=== PATIENT | male | born 1985 | race African-American/Black ===

== ENCOUNTER 2017-01-14 13:34 | Emergency (ER) | payer OTHER ==
[~2017-01-14] VITALS: Ht 172.7 cm; Wt 77.1 kg
[2017-01-14 14:14] LABS: BASOPHILS # (AUTO) 0.1 /CMM (0.0-0.2); BASOPHILS % (AUTO) 0.9 % (0.0-2.0); EOSINOPHILS # (AUTO) 0.1 /CMM (0.0-0.7); EOSINOPHILS % (AUTO) 0.6 % (0.0-6.0); HEMATOCRIT 42 % (39-51); HEMOGLOBIN 13.8 g/dL (13.5-17.5); LYMPHOCYTES % (AUTO) 10.6 % (20.0-44.0); MEAN CORPUSCULAR HEMOGLOBIN 29 PG (26.0-33.0); MEAN CORPUSCULAR HGB CONC 33 g/dl (31.0-36.0); MEAN CORPUSCULAR VOLUME 88 fL (80-96); MONOCYTES # (AUTO) 0.6 /CMM (0.1-1.30); MONOCYTES % (AUTO) 6.6 % (2.0-12.0); NEUTROPHILS # (AUTO) 7.6 /CMM (1.8-8.9); NEUTROPHILS % (AUTO) 81.3 % (43.0-81.0); PLATELET COUNT (AUTO) 186 /CMM (150-450); RDW COEFFICIENT OF VARIATION 14.4 (11.5-15.0); RED BLOOD CELL COUNT(AUTO) 4.79 MIL/uL (4.5-6.0); WHITE BLOOD COUNT (AUTO) 9.4 K/uL (4.3-11.0)
[2017-01-14 14:23] LABS: CALCIUM, SERUM 9.1 mg/dL (8.5-10.1); CARBON DIOXIDE 29 mmol/L (21-32); CHLORIDE 105 mmol/L (98-107); CREATININE 1.2 mg/dL (0.6-1.3); GFR 86 mL/min (>60); GLUCOSE 105 mg/dL (74-106); POTASSIUM 3.9 mmol/L (3.5-5.1); SODIUM SERUM 141 mmol/L (136-145); UREA NITROGEN, BLOOD 27 mg/dL (7-18)
[2017-01-14 14:29] LABS: ACETAMINOPHEN 0 ug/ml (10-30); ALANINE AMINOTRANSFERASE 34 U/L (12-78); ALBUMIN 3.8 g/dL (3.4-5.0); ALCOHOL, BLOOD < 3 mg/dL (0-0); ALKALINE PHOSPHATASE 72 U/L (46-116); ASPARTATE AMINOTRANSFERASE 44 U/L (15-37); BILIRUBIN,DIRECT 0.2 mg/dL (0.0-0.2); BILIRUBIN,TOTAL 0.5 mg/dL (0.2-1.0); SALICYLATE 1.9 mg/dL (2.8-20.0); TOTAL PROTEIN, SERUM 7.3 g/dL (6.4-8.2)
--- NOTE | 2017-01-14 17:24 | NUR ---
CALLED ANG[facility] FOR TRANSPORTATION GOING TO [facility] 20 MIN.
[2017-01-14 17:51] VITALS: BP 121/73
--- NOTE | 2017-01-14 17:51 | NUR ---
Patient discharged to home in stable condition. Written and verbal after care instructions given. Patient verbalizes understanding of instruction. TRANSFERED TO [facility]
== END 2017-01-14 17:57 | disposition home or self-care (01) ==
LOC: ER 13:38
DX: F32.9 Major depressive disorder, single episode, unspecified (principal); F17.200 Nicotine dependence, unspecified, uncomplicated
CPT/HCPCS: 36415; 80048; 80076; 80164; 80329; 85025; 99284; A4606; G0480 ×2; Z7610; G6039-TC

== ENCOUNTER 2017-04-29 21:13 | Emergency (ER) | payer OTHER ==
[~2017-04-29] VITALS: Ht 170.2 cm; Wt 91.6 kg
--- NOTE | 2017-04-29 21:19 | NUR ---
TO BED 3 BIB PARAMEDICS C/O MIDEPIGASTRIC PAIN RADIATING TO MID ABDOMEN SINCE LAST NIGHT. PT ADMITS TO USING METH LAST NIGHT. PT AAOX4 NO ACUTE DISTRESS NOTED, RESP EVEN AND UNLABORED. PLACE PT ON CARDIAC MONITORING, CONTINUOUS POX. PENDING ER MD COBB. 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
--- NOTE | 2017-04-29 21:19 | NUR ---
Note undone in EDM - 04/29/17 at 2136 by JULIET TO BED 3 BIB PARAMEDICS C/O INTERMITTENT NONRADIATING MIDSTERNAL CP X FEW MONTHS PER PT REPORT. PT ADMITS TO USING METH X COUPLE OF DAYS. PT AAOX4 NO ACUTE DISTRESS NOTED, RESP EVEN AND UNLABORED. PLACE PT ON CARDIAC MONITORING, CONTINUOUS POX. PENDING ER MD COBB. SL 18G TO LAC BUSINESS OBJECTS.
[2017-04-29] MEDS ORDERED: ONDANSETRON HCL/PF 4 MG/2 ML VIAL ONE (21:41)
[2017-04-29] MEDS ORDERED: MAG HYDROX/AL HYDROX/SIMETH 30 ML UDC ONE (21:41)
[2017-04-29] MEDS ORDERED: ACETAMINOPHEN ES 500 MG TABLET ONE (21:42)
[2017-04-29] MEDS ORDERED: FAMOTIDINE (20 MG) 20 MG TABLET ONE (21:42)
[2017-04-29] MEDS ORDERED: DIVALPROEX SODIUM 250 MG TABLET.DR PO ONE ×2 (21:42→22:00)
--- NOTE | 2017-04-29 21:42 | NUR ---
BLOOD DRAWN BY ARMATURE STRAIGHTENER.
[2017-04-29 21:45] LABS: BASOPHILS # (AUTO) 0.2 /CMM (0.0-0.2); BASOPHILS % (AUTO) 2.5 % (0.0-2.0); EOSINOPHILS % (AUTO) 0.6 % (0.0-6.0); HEMATOCRIT 42 % (39-51); HEMOGLOBIN 13.9 g/dL (13.5-17.5); LYMPHOCYTES # (AUTO) 1.2 /CMM (0.8-4.8); MEAN CORPUSCULAR HEMOGLOBIN 29 PG (26.0-33.0); MEAN CORPUSCULAR HGB CONC 33 g/dl (31.0-36.0); MEAN CORPUSCULAR VOLUME 89 fL (80-96); MONOCYTES # (AUTO) 0.8 /CMM (0.1-1.30); MONOCYTES % (AUTO) 10.6 % (2.0-12.0); NEUTROPHILS # (AUTO) 5.3 /CMM (1.8-8.9); NEUTROPHILS % (AUTO) 70.3 % (43.0-81.0); PLATELET COUNT (AUTO) 231 /CMM (150-450); RDW COEFFICIENT OF VARIATION 14.1 (11.5-15.0); RED BLOOD CELL COUNT(AUTO) 4.72 MIL/uL (4.5-6.0); WHITE BLOOD COUNT (AUTO) 7.5 K/uL (4.3-11.0)
--- NOTE | 2017-04-29 21:46 | NUR ---
PT MEDICATED ORDERED.
[2017-04-29 21:59] LABS: CALCIUM, SERUM 8.4 mg/dL (8.5-10.1); CARBON DIOXIDE 28 mmol/L (21-32); CHLORIDE 101 mmol/L (98-107); CREATININE 1.3 mg/dL (0.6-1.3); GLUCOSE 94 mg/dL (74-106); POTASSIUM 4.2 mmol/L (3.5-5.1); SODIUM SERUM 138 mmol/L (136-145); UREA NITROGEN, BLOOD 31 mg/dL (7-18)
[2017-04-29] MEDS ORDERED: FAMOTIDINE (20 MG) 20 MG TABLET PO ONE (22:00)
[2017-04-29] MEDS ORDERED: ACETAMINOPHEN ES 500 MG TABLET PO ONE (22:00)
[2017-04-29] MEDS ORDERED: ONDANSETRON HCL/PF 4 MG/2 ML VIAL IVP ONE (22:00)
[2017-04-29] MEDS ORDERED: MAG HYDROX/AL HYDROX/SIMETH 30 ML UDC PO ONE (22:00)
[2017-04-29 22:05] LABS: TROPONIN I < 0.017 ng/mL (0.00-0.056)
--- NOTE | 2017-04-29 22:06 | NUR ---
URINE SAMPLE COLLECTED AND SENT TO LAB.
[2017-04-29 22:16] LABS: ALANINE AMINOTRANSFERASE 60 U/L (12-78); ALBUMIN 4.3 g/dL (3.4-5.0); ALCOHOL, BLOOD < 3 mg/dL (0-0); ALKALINE PHOSPHATASE 70 U/L (46-116); ASPARTATE AMINOTRANSFERASE 108 U/L (15-37); BILIRUBIN,DIRECT 0.1 mg/dL (0.0-0.2); BILIRUBIN,TOTAL 0.6 mg/dL (0.2-1.0); TOTAL PROTEIN, SERUM 7.6 g/dL (6.4-8.2)
[2017-04-29 22:20] LABS: ACETAMINOPHEN 0 ug/ml (10-30)
[2017-04-29] MEDS ORDERED: TDAP [DIPH/PERTUSSIS/TET] 0.5 ML VIAL IM ONE ×2 (22:51→23:00)
--- NOTE | 2017-04-29 22:52 | NUR ---
CALLED [facility] FOR TRANSPORT, ETA OF 30 MINS WAS GIVEN.
--- NOTE | 2017-04-29 23:14 | NUR ---
TRANSPORT AT BEDSIDE REPORT GIVEN TO EMT
[2017-04-29 23:15] VITALS: BP 138/76
== END 2017-04-29 23:21 | disposition home or self-care (01) ==
LOC: ER 21:14
DX: R07.89 Other chest pain (principal); F20.9 Schizophrenia, unspecified; R56.9 Unspecified convulsions; F17.200 Nicotine dependence, unspecified, uncomplicated
CPT/HCPCS: 36415; 71010; 80048; 80076; 80305; 80329; 84484; 85025; 90471; 90715; 93005; 96374; 99285; A4606; G0480 ×2; J2405; Z7610

== ENCOUNTER 2019-02-24 19:23 | Emergency (ER) | payer MEDICAID, OTHER ==
[~2019-02-24] VITALS: Ht 172.7 cm; Wt 83.9 kg
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
--- NOTE | 2019-02-24 20:10 | NUR ---
SEEN AND EXAMINED BY DORIAN TRAMMELL
--- NOTE | 2019-02-24 20:20 | NUR ---
URINAL GIVEN BUT UNABLE TO PROVIDE URINE SPECIMEN THIS TIME.
--- NOTE | 2019-02-24 20:22 | NUR ---
BLOOD DRAWNED AND SENT TO LAB.
[2019-02-24] MEDS ORDERED: DIVALPROEX SODIUM 500 MG TABLET.DR PO ONE ×2 (20:28→20:30)
[2019-02-24 20:55] LABS: BASOPHILS % (AUTO) 0.7 % (0.0-2.0); EOSINOPHILS % (AUTO) 0.4 % (0.0-6.0); HEMATOCRIT 45 % (39-51); HEMOGLOBIN 15.1 g/dL (13.5-17.5); LYMPHOCYTES # (AUTO) 1.1 /CMM (0.8-4.8); LYMPHOCYTES % (AUTO) 18.2 % (20.0-44.0); MEAN CORPUSCULAR HGB CONC 34 g/dl (31.0-36.0); MEAN CORPUSCULAR VOLUME 89 fL (80-96); MONOCYTES # (AUTO) 0.6 /CMM (0.1-1.30); MONOCYTES % (AUTO) 9.7 % (2.0-12.0); NEUTROPHILS # (AUTO) 4.4 /CMM (1.8-8.9); PLATELET COUNT (AUTO) 247 /CMM (150-450); RED BLOOD CELL COUNT(AUTO) 5.02 MIL/uL (4.5-6.0); WHITE BLOOD COUNT (AUTO) 6.2 K/uL (4.3-11.0)
[2019-02-24 21:00] LABS: CALCIUM, SERUM 9.4 mg/dL (8.5-10.1); CARBON DIOXIDE 28 mmol/L (21-32); CHLORIDE 98 mmol/L (98-107); CREATININE 1.2 mg/dL (0.6-1.3); GLUCOSE 98 mg/dL (74-106); POTASSIUM 4.8 mmol/L (3.5-5.1); SODIUM SERUM 136 mmol/L (136-145); UREA NITROGEN, BLOOD 27 mg/dL (7-18)
[2019-02-24 21:06] LABS: ALANINE AMINOTRANSFERASE 43 U/L (12-78); ALBUMIN 4.7 g/dL (3.4-5.0); ALCOHOL, BLOOD < 3 mg/dL (0-0); ALKALINE PHOSPHATASE 78 U/L (46-116); ASPARTATE AMINOTRANSFERASE 58 U/L (15-37); BILIRUBIN,DIRECT 0.2 mg/dL (0.0-0.2); BILIRUBIN,TOTAL 0.6 mg/dL (0.2-1.0); TOTAL PROTEIN, SERUM 8.6 g/dL (6.4-8.2)
[2019-02-24 21:09] LABS: APPEARANCE,URINE Clear (CLEAR); BILIRUBIN,URINE SMALL (NEGATIVE); BLOOD, URINE Negative Ery/uL (NEGATIVE); COLOR,URINE Yellow (YELLOW); KETONES,URINE 15 (NEGATIVE); LEUKOCYTE ESTERASE ,URINE Negative (NEGATIVE); NITRITE, URINE Negative (NEGATIVE); PH,URINE 5.5 (5.0-8.0); PROTEIN,URINE Trace mg/dl (NEGATIVE); UGLUCOSE Negative (NEGATIVE); UROBILINOGEN,URINE 0.2 EU/dL (0.2)
[2019-02-24 21:10] LABS: ACETAMINOPHEN < 10 ug/ml (10-30)
--- NOTE | 2019-02-24 21:15 | NUR ---
URINE SPECIMEN COLLECTED AND SENT LAB.
[2019-02-24 21:25] LABS: BACTERIA,URINE None seen /HPF (None Seen); MUCUS,URINE Rare /LPF (None Seen); RBC,URINE 0-2 /HPF (0-2); SQUAMOUS EPITHELIAL CELL,UR Few /HPF (None Seen); WBC,URINE 0-2 /HPF (0-3)
--- NOTE | 2019-02-24 21:35 | NUR ---
CALLED HOME SERVICE ADVISOR YOEL SCHOOL AGE TEACHER WILL BE HERE IN 1 HR
--- NOTE | 2019-02-24 23:09 | NUR ---
YOEL REESE AT BEDSIDE FOR EVAL.
--- NOTE | 2019-02-25 00:07 | NUR ---
SPOKE TO RODNEY FROM [facility]. STATED THEY WILL TAKE THE PATIENT BETWEEN [phone].
[2019-02-25] MEDS ORDERED: LORAZEPAM 1 MG TABLET ONE (02:13)
--- NOTE | 2019-02-25 02:20 | NUR ---
ATIVAN 1MG PO GIVEN VERBAL ORDERED BY DR. WESLEY.
--- NOTE | 2019-02-25 03:57 | NUR ---
PT ACCEPTED TO [facility]. [facility] ETA: 0515. AUTH:[id number] PT GOING TO ROOM: UNIT 1. NUMBER FOR REPORT: [phone]. EXT 108
--- NOTE | 2019-02-25 04:08 | NUR ---
REPORT GIVEN TO CHULA ÁLVAREZ OF [facility] FOR [facility].
[2019-02-25] MEDS ORDERED: LORAZEPAM 1 MG TABLET PO ONE (04:30)
[2019-02-25 05:09] VITALS: BP 150/92
--- NOTE | 2019-02-25 05:09 | NUR ---
REPORT GIVEN TO EMT FOR PATIENT TRANSFER.
== END 2019-02-25 05:11 ==
LOC: ER 19:25
DX: F32.9 Major depressive disorder, single episode, unspecified (principal); F22 Delusional disorders; F17.200 Nicotine dependence, unspecified, uncomplicated; Z59.0 Homelessness
CPT/HCPCS: 36415; 80048; 80076; 80305; 80307; 80329; 81001; 85025; 99285; G0480; 81000-TC

== ENCOUNTER 2019-11-28 13:36 | Emergency (ER) | payer MEDICAID, OTHER ==
[~2019-11-28] VITALS: Ht 170.2 cm; Wt 79.4 kg
--- NOTE | 2019-11-28 13:55 | NUR ---
IV LINE ESTABLISHED, BLOOD DRAWN AND SENT TO LAB.
[2019-11-28] MEDS ORDERED: ONDANSETRON HCL/PF 4 MG/2 ML VIAL ONE (13:59)
[2019-11-28] MEDS ORDERED: MORPHINE SULFATE INJ 4 MG/ML DISP.SYRIN ONE (13:59)
[2019-11-28] MEDS ORDERED: IV NS 0.9% 1,000 ML BAG IV ONE (14:00)
[2019-11-28] MEDS ORDERED: MORPHINE SULFATE INJ 2 MG/ML DISP.SYRIN IV ONE (14:00)
[2019-11-28] MEDS ORDERED: ONDANSETRON HCL/PF 4 MG/2 ML VIAL IVP ONE (14:00)
[2019-11-28] MEDS ORDERED: PANTOPRAZOLE 80 MG in IV NS 0.9% 500 ML IV ONE (14:00)
--- NOTE | 2019-11-28 14:00 | NUR ---
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 On room air, breathing evenly and unlabored. connected to the monitor and pulse ox. Kept comfortable, will continue to monitor accordingly.
[2019-11-28 14:01] LABS: BASOPHILS % (AUTO) 0.4 % (0.0-2.0); EOSINOPHILS % (AUTO) 0.6 % (0.0-6.0); HEMATOCRIT 42 % (39-51); HEMOGLOBIN 14.2 g/dL (13.5-17.5); LYMPHOCYTES % (AUTO) 18.3 % (20.0-44.0); MEAN CORPUSCULAR HGB CONC 34 g/dl (31.0-36.0); MEAN CORPUSCULAR VOLUME 88 fL (80-96); MONOCYTES # (AUTO) 0.4 /CMM (0.1-1.30); NEUTROPHILS % (AUTO) 72.7 % (43.0-81.0); PLATELET COUNT (AUTO) 264 /CMM (150-450); RED BLOOD CELL COUNT(AUTO) 4.73 MIL/uL (4.5-6.0); WHITE BLOOD COUNT (AUTO) 5.5 K/uL (4.3-11.0)
[2019-11-28] MEDS ORDERED: PANTOPRAZOLE 40 MG VIAL ONE (14:01)
[2019-11-28 14:08] LABS: CREATININE 1.4 mg/dL (0.6-1.3); POTASSIUM 3.9 mmol/L (3.5-5.1)
[2019-11-28 14:14] LABS: ALBUMIN 4.3 g/dL (3.4-5.0); BILIRUBIN,DIRECT 0.3 mg/dL (0.0-0.2); BILIRUBIN,TOTAL 1.4 mg/dL (0.2-1.0); TOTAL PROTEIN, SERUM 7.7 g/dL (6.4-8.2)
[2019-11-28] MEDS ORDERED: PANTOPRAZOLE 40 MG VIAL IV ONE (14:30)
[2019-11-28 15:37] LABS: APPEARANCE,URINE Clear (CLEAR); BILIRUBIN,URINE Negative (NEGATIVE); BLOOD, URINE Small Ery/uL (NEGATIVE); COLOR,URINE Yellow (YELLOW); KETONES,URINE 15 (NEGATIVE); LEUKOCYTE ESTERASE ,URINE Negative (NEGATIVE); NITRITE, URINE Negative (NEGATIVE); PROTEIN,URINE Negative (NEGATIVE); UGLUCOSE Negative (NEGATIVE)
[2019-11-28 15:47] LABS: BACTERIA,URINE Few /HPF (None Seen); SQUAMOUS EPITHELIAL CELL,UR Few /HPF (None Seen); WBC,URINE 0-2 /HPF (0-3)
--- NOTE | 2019-11-28 16:05 | NUR ---
patient verbalized SI " i want to jump off the bridge", MD notified.
--- NOTE | 2019-11-28 16:06 | NUR ---
security at bedside and wand the patient.
--- NOTE | 2019-11-28 16:06 | NUR ---
called security for wanding
[2019-11-28 16:50] LABS: ACETAMINOPHEN < 5 ug/ml (10-30); SALICYLATE 0.7 mg/dL (2.8-20.0)
--- NOTE | 2019-11-28 19:43 | NUR ---
PER [facility]ONNI [facility]TA[facility], NO BEDS AVAILABLE AT THIS TIME. WILL FOLLOW UP
--- NOTE | 2019-11-28 21:57 | NUR ---
Andreea ayon in [facility] - 11/28/19 at 2219 by MOISÉS PER [facility]ON[facility] INTAKE, PT NOT ACCEPTED TO ANY [facility] FACILITY
--- NOTE | 2019-11-28 21:57 | NUR ---
PER SOC[facility] INTAKE, PT NOT ACCEPTED TO [facility]. PENDING POSSIBLE TRANSFER TO [facility], WILL FOLLOW UP
--- NOTE | 2019-11-28 22:16 | NUR ---
Patient is resting comfortably in bed with eyes closed. Easily aroused. VSS.
--- NOTE | 2019-11-28 22:30 | NUR ---
PER [facility], NO BEDS AVAILABLE AT THIS TIME
--- NOTE | 2019-11-29 02:14 | NUR ---
Patient is resting comfortably in bed with eyes closed.
[2019-11-29] MEDS ORDERED: LORAZEPAM 1 MG TABLET ONE (02:39)
[2019-11-29] MEDS ORDERED: LORAZEPAM 1 MG TABLET PO ONE (03:00)
--- NOTE | 2019-11-29 07:26 | NUR ---
PER [facility] INTAKE, STILL NO BEDS AVAILABLE AT THIS TIME. WILL FOLLOW UP
--- NOTE | 2019-11-29 07:30 | NUR ---
REPORT RECEIVED FROM LUCIA QUIROS FOR JA[facility]
--- NOTE | 2019-11-29 07:53 | NUR ---
FOOD TRAY PROVIDED.
--- NOTE | 2019-11-29 08:39 | NUR ---
COTTON ACREAGE MEASURER contacted Edmundo at [facility] to f/u regarding accepting pt at [facility]. Edmundo informed COTTON ACREAGE MEASURER he will call [facility] back after following up with [facility].
--- NOTE | 2019-11-29 08:56 | NUR ---
REPORT GIVEN TO CUHLA HOUSE OF [facility] EULAILO.
[2019-11-29] MEDS ORDERED: DIVALPROEX SODIUM 500 MG TABLET.DR PO ONE ×2 (08:59→09:00)
[2019-11-29 09:02] VITALS: BP 139/89
--- NOTE | 2019-11-29 09:16 | NUR ---
HILDA OF [facility] INTAKE, PT IS ACCEPTED BY AND .
--- NOTE | 2019-11-29 10:48 | NUR ---
REPORT GIVEN TO EMS FOR PT TRANSFER TO [facility].
--- NOTE | 2019-11-29 11:00 | NUR ---
Picked up by [facility] going to [facility] in stable condition. All belongings returned to patient. Name band removed.
== END 2019-11-29 11:15 ==
LOC: ER 13:36
DX: F31.9 Bipolar disorder, unspecified (principal); R45.851 Suicidal ideations; R16.0 Hepatomegaly, not elsewhere classified; F19.10 Other psychoactive substance abuse, uncomplicated; R11.10 Vomiting, unspecified; F20.0 Paranoid schizophrenia; G40.909 Epilepsy, unspecified, not intractable, without status epilepticus; F17.200 Nicotine dependence, unspecified, uncomplicated; Z59.0 Homelessness
CPT/HCPCS: 36415; 74176; 80048; 80076; 80305; 80307; 80329; 81001; 83690; 85025; 85730; 96361; 96374; 96375; 99285; C9113; G0480; J2270; J2405; J7030; 81000-TC

== ENCOUNTER 2019-12-15 21:23 | Emergency (ER) | payer MEDICAID ==
[~2019-12-15] VITALS: Ht 172.7 cm; Wt 87.1 kg
--- NOTE | 2019-12-15 22:02 | NUR ---
PT BIBSELF C/O SUICIDAL IDEATION AND AUDITORY HALLUCINATIONS. PT STATES "I'M HEARING VOICES TELLING ME TO RUN INTO TRAFFIC". PT ALSO C/O ANXIETY AND DEPRESSION. PT AAOX4. CALM AND COOPERATIVE. AMBULATORY WITH STEADY GAIT. VITAL SIGNS STABLE. RESPIRATIONS EVEN AND UNLABORED. SKIN WARM AND INTACT. NO ACUTE DISTRESS NOTED AT THIS TIME. PT PLACED IN GOWN, BELONGINGS COLLECTED AND PLACED IN PATIENT LOCKER. SITTER AT BEDSIDE. WILL CONTINUE TO MONITOR
[2019-12-15 23:05] LABS: BASOPHILS % (AUTO) 0.8 % (0.0-2.0); EOSINOPHILS % (AUTO) 1.2 % (0.0-6.0); HEMATOCRIT 42 % (39-51); HEMOGLOBIN 14.1 g/dL (13.5-17.5); LYMPHOCYTES # (AUTO) 1.5 /CMM (0.8-4.8); LYMPHOCYTES % (AUTO) 26.1 % (20.0-44.0); MEAN CORPUSCULAR HGB CONC 34 g/dl (31.0-36.0); MEAN CORPUSCULAR VOLUME 90 fL (80-96); MONOCYTES # (AUTO) 0.4 /CMM (0.1-1.30); MONOCYTES % (AUTO) 6.3 % (2.0-12.0); NEUTROPHILS # (AUTO) 3.8 /CMM (1.8-8.9); NEUTROPHILS % (AUTO) 65.6 % (43.0-81.0); PLATELET COUNT (AUTO) 278 /CMM (150-450); RED BLOOD CELL COUNT(AUTO) 4.66 MIL/uL (4.5-6.0); WHITE BLOOD COUNT (AUTO) 5.7 K/uL (4.3-11.0)
[2019-12-15 23:07] LABS: APPEARANCE,URINE Slightly Cloudy (CLEAR); BILIRUBIN,URINE Negative (NEGATIVE); BLOOD, URINE Negative Ery/uL (NEGATIVE); COLOR,URINE Dark (YELLOW); KETONES,URINE Negative (NEGATIVE); LEUKOCYTE ESTERASE ,URINE Negative (NEGATIVE); NITRITE, URINE Negative (NEGATIVE); PROTEIN,URINE Negative (NEGATIVE); UGLUCOSE 100 MG/DL mg/dL (NEGATIVE)
[2019-12-15 23:17] LABS: BACTERIA,URINE Few /HPF (None Seen); MUCUS,URINE Few /LPF (None Seen); RBC,URINE 0-2 /HPF (0-2); SQUAMOUS EPITHELIAL CELL,UR Rare /HPF (None Seen); WBC,URINE 0-2 /HPF (0-3)
[2019-12-15 23:18] LABS: CALCIUM, SERUM 8.9 mg/dL (8.5-10.1); CARBON DIOXIDE 31 mmol/L (21-32); CHLORIDE 102 mmol/L (98-107); GLUCOSE 135 mg/dL (74-106); POTASSIUM 3.9 mmol/L (3.5-5.1); SODIUM SERUM 139 mmol/L (136-145); UREA NITROGEN, BLOOD 13 mg/dL (7-18)
[2019-12-15 23:23] LABS: ALANINE AMINOTRANSFERASE 65 U/L (12-78); ALBUMIN 3.8 g/dL (3.4-5.0); ALCOHOL, BLOOD < 3 mg/dL (0-0); ALKALINE PHOSPHATASE 99 U/L (46-116); ASPARTATE AMINOTRANSFERASE 21 U/L (15-37); BILIRUBIN,DIRECT 0.1 mg/dL (0.0-0.2); BILIRUBIN,TOTAL 0.5 mg/dL (0.2-1.0); TOTAL PROTEIN, SERUM 7.2 g/dL (6.4-8.2)
[2019-12-15 23:24] LABS: ACETAMINOPHEN 0 ug/ml (10-30)
[2019-12-15 23:25] LABS: SALICYLATE < 0.2 mg/dL (2.8-20.0)
--- NOTE | 2019-12-16 00:49 | NUR ---
PER DR. QUEZADA, PT MEDICALLY CLEARED. CLINICAL INFORMATION FAXED TO [facility]
--- NOTE | 2019-12-16 01:37 | NUR ---
PT RESTING COMFORTABLY. NO ACUTE DISTRESS NOTED. PT ON CONSTANT OBSERVATION W/ SITTER AT BEDSIDE. WILL CONTINUE TO MONITOR FOR SAFETY
--- NOTE | 2019-12-16 03:00 | NUR ---
PT ACCEPTED TO [facility] ACCEPTING MD: DR. CORREA NUMBER FOR REPORT: [phone] UNIT 1
--- NOTE | 2019-12-16 03:05 | NUR ---
CALLED [facility] FOR TRANSPORTATION. PENDING ETA. CONFIRMATION #[id number]
--- NOTE | 2019-12-16 04:14 | NUR ---
[facility] CONFIRMATION #[id number]. STILL PENDING ETA
--- NOTE | 2019-12-16 04:49 | NUR ---
PT RESTING COMFORTABLY. NO ACUTE DISTRESS NOTED. PT ON CONSTANT OBSERVATION W/ SITTER AT BEDSIDE. WILL CONTINUE TO MONITOR FOR SAFETY
--- NOTE | 2019-12-16 05:00 | NUR ---
AMBULANCE ETA [phone]
--- NOTE | 2019-12-16 07:28 | NUR ---
REPORT GIVEN TO CHULA CHATTERJEE FROM [facility] FOR [facility]NAE
[2019-12-16 07:29] VITALS: BP 131/79
--- NOTE | 2019-12-16 07:32 | NUR ---
REPORT GIVEN TO [facility] FOR TRANSPORTATION JA[facility]E
== END 2019-12-16 07:33 | disposition short-term general hospital (02) ==
LOC: ER 21:34
DX: F32.9 Major depressive disorder, single episode, unspecified (principal); R45.851 Suicidal ideations; G40.909 Epilepsy, unspecified, not intractable, without status epilepticus; F20.9 Schizophrenia, unspecified; F17.200 Nicotine dependence, unspecified, uncomplicated; Z59.0 Homelessness
CPT/HCPCS: 36415; 80048; 80076; 80305; 80307; 80329; 81001; 85025; 99285; G0480; 81000-TC

== ENCOUNTER 2020-03-13 00:03 | Emergency (ER) | payer MEDICAID ==
[~2020-03-13] VITALS: Ht 167.6 cm; Wt 99.8 kg
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
[2020-03-13 00:44] LABS: BASOPHILS % (AUTO) 0.6 % (0.0-2.0); EOSINOPHILS % (AUTO) 0.8 % (0.0-6.0); HEMATOCRIT 41 % (39-51); HEMOGLOBIN 13.6 g/dL (13.5-17.5); LYMPHOCYTES # (AUTO) 1.9 /CMM (0.8-4.8); LYMPHOCYTES % (AUTO) 34.4 % (20.0-44.0); MEAN CORPUSCULAR HGB CONC 34 g/dl (31.0-36.0); MEAN CORPUSCULAR VOLUME 90 fL (80-96); MONOCYTES # (AUTO) 0.6 /CMM (0.1-1.30); MONOCYTES % (AUTO) 10.2 % (2.0-12.0); NEUTROPHILS # (AUTO) 2.9 /CMM (1.8-8.9); PLATELET COUNT (AUTO) 228 /CMM (150-450); RED BLOOD CELL COUNT(AUTO) 4.52 MIL/uL (4.5-6.0); WHITE BLOOD COUNT (AUTO) 5.4 K/uL (4.3-11.0)
[2020-03-13] MEDS ORDERED: ACETAMINOPHEN ES 500 MG TABLET ONE (00:54)
[2020-03-13 00:57] LABS: CALCIUM, SERUM 8.8 mg/dL (8.5-10.1); CARBON DIOXIDE 28 mmol/L (21-32); CHLORIDE 109 mmol/L (98-107); CREATININE 1.2 mg/dL (0.6-1.3); GLUCOSE 120 mg/dL (74-106); POTASSIUM 4.1 mmol/L (3.5-5.1); SODIUM SERUM 142 mmol/L (136-145); UREA NITROGEN, BLOOD 15 mg/dL (7-18)
[2020-03-13] MEDS ORDERED: ACETAMINOPHEN ES 500 MG TABLET PO ONE (01:00)
[2020-03-13 01:01] LABS: ALANINE AMINOTRANSFERASE 42 U/L (12-78); ALBUMIN 4.2 g/dL (3.4-5.0); ALCOHOL, BLOOD < 3 mg/dL (0-0); ALKALINE PHOSPHATASE 97 U/L (46-116); ASPARTATE AMINOTRANSFERASE 35 U/L (15-37); BILIRUBIN,DIRECT 0.1 mg/dL (0.0-0.2); BILIRUBIN,TOTAL 0.3 mg/dL (0.2-1.0); TOTAL PROTEIN, SERUM 7.4 g/dL (6.4-8.2)
[2020-03-13 01:02] LABS: ACETAMINOPHEN 0 ug/ml (10-30); SALICYLATE 2.3 mg/dL (2.8-20.0)
--- NOTE | 2020-03-13 01:45 | NUR ---
PT UNABLE TO PROVIDE URINE SAMPLE AT THIS TIME. MD HOOPER
--- NOTE | 2020-03-13 02:19 | NUR ---
URINE COLLECTED AND SENT TO LAB
[2020-03-13 03:03] LABS: APPEARANCE,URINE CLEAR (CLEAR); BILIRUBIN,URINE NEGATIVE (NEGATIVE); BLOOD, URINE NEGATIVE Ery/uL (NEGATIVE); COLOR,URINE YELLOW (YELLOW); KETONES,URINE NEGATIVE (NEGATIVE); LEUKOCYTE ESTERASE ,URINE NEGATIVE (NEGATIVE); NITRITE, URINE NEGATIVE (NEGATIVE); PROTEIN,URINE NEGATIVE (NEGATIVE); UGLUCOSE NEGATIVE (NEGATIVE); UROBILINOGEN,URINE 0.2 EU/dL (0.2)
--- NOTE | 2020-03-13 04:35 | NUR ---
PER RONALD FROM [facility], REQUESTING DEPAKOTE LEVEL
[2020-03-13] MEDS ORDERED: DIVALPROEX SODIUM 500 MG TABLET.DR PO ONE ×2 (06:14→06:30)
--- NOTE | 2020-03-13 06:14 | NUR ---
spoke ASMITA, aware of results depakote level and pt to received depakote 500mg po. will fax lab results as requested.
[2020-03-13 06:25] VITALS: BP 136/86
--- NOTE | 2020-03-13 06:28 | NUR ---
PT ACCEPTED TO [facility] BY DR CORREA. # FOR REPORT [phone]
--- NOTE | 2020-03-13 06:46 | NUR ---
[facility] CALLED FOR TRANSPORTATION. PENDING ETA. #[id number]
--- NOTE | 2020-03-13 06:58 | NUR ---
CALL FROM [facility]. [facility] ETA [phone]
--- NOTE | 2020-03-13 08:29 | NUR ---
Patient awake alert noted able to ambulate he follows command no agitaion @ this time
--- NOTE | 2020-03-13 08:52 | NUR ---
Report given to Beata Barraza [facility] [phone] no question asked .
== END 2020-03-13 08:54 ==
LOC: ER 00:03
DX: F31.9 Bipolar disorder, unspecified (principal); R45.851 Suicidal ideations; F20.0 Paranoid schizophrenia; G40.909 Epilepsy, unspecified, not intractable, without status epilepticus; Z59.0 Homelessness
CPT/HCPCS: 36415; 80048; 80076; 80164; 80305; 80307; 80329; 81001; 85025; 99285; G0480; 81000-TC

== ENCOUNTER 2020-05-22 18:13 | Emergency (ER) | payer MEDICAID ==
[~2020-05-22] VITALS: Ht 172.7 cm; Wt 97.5 kg
--- NOTE | 2020-05-22 18:31 | NUR ---
CAME IN STATING NOTICE BLOOD IN STOOL X TODAY. ALSO SUICIDAL W/ PLAN TO OD/ JUMP OFF BRIDGE, HOMELESS, TO ER BED 15, HOOKED TO MONITOR, SITTER AT BEDSIDE FOR SAFETY. AWAITING MD COBB
--- NOTE | 2020-05-22 18:33 | NUR ---
DR CALDERA AT BEDSIDE
--- NOTE | 2020-05-22 18:42 | NUR ---
SECURITY AT BEDSIDE FOR WANDING. BELONGINGS TO PATIENT LOCKER.
[2020-05-22 18:48] LABS: APPEARANCE,URINE Clear (CLEAR); BILIRUBIN,URINE SMALL (NEGATIVE); BLOOD, URINE Negative Ery/uL (NEGATIVE); COLOR,URINE Yellow (YELLOW); KETONES,URINE Trace (NEGATIVE); LEUKOCYTE ESTERASE ,URINE Negative (NEGATIVE); NITRITE, URINE Negative (NEGATIVE); PH,URINE 5.5 (5.0-8.0); PROTEIN,URINE 30 mg/dl (NEGATIVE); UGLUCOSE Negative (NEGATIVE)
[2020-05-22 18:51] LABS: BASOPHILS % (AUTO) 0.5 % (0.0-2.0); EOSINOPHILS % (AUTO) 0.7 % (0.0-6.0); HEMATOCRIT 42 % (39-51); HEMOGLOBIN 14.2 g/dL (13.5-17.5); LYMPHOCYTES # (AUTO) 1.9 /CMM (0.8-4.8); LYMPHOCYTES % (AUTO) 23.8 % (20.0-44.0); MEAN CORPUSCULAR HGB CONC 34 g/dl (31.0-36.0); MEAN CORPUSCULAR VOLUME 88 fL (80-96); MONOCYTES # (AUTO) 0.9 /CMM (0.1-1.30); MONOCYTES % (AUTO) 11.5 % (2.0-12.0); NEUTROPHILS # (AUTO) 5.1 /CMM (1.8-8.9); NEUTROPHILS % (AUTO) 63.5 % (43.0-81.0); PLATELET COUNT (AUTO) 261 /CMM (150-450); RED BLOOD CELL COUNT(AUTO) 4.73 MIL/uL (4.5-6.0)
[2020-05-22 19:06] LABS: BACTERIA,URINE Rare /HPF (None Seen); RBC,URINE NONE SEEN /HPF (0-2); SQUAMOUS EPITHELIAL CELL,UR Few /HPF (None Seen); WBC,URINE NONE SEEN /HPF (0-3)
--- NOTE | 2020-05-22 19:10 | NUR ---
NOT ABLE TO PROVIDE URINE SAMPLE AT THIS TIME, MD HOOPER
[2020-05-22 19:18] LABS: ALANINE AMINOTRANSFERASE 86 U/L (12-78); ALBUMIN 4.6 g/dL (3.4-5.0); ALKALINE PHOSPHATASE 93 U/L (46-116); ASPARTATE AMINOTRANSFERASE 149 U/L (15-37); BILIRUBIN,DIRECT 0.4 mg/dL (0.0-0.2); BILIRUBIN,TOTAL 1.6 mg/dL (0.2-1.0); CALCIUM, SERUM 9.1 mg/dL (8.5-10.1); CARBON DIOXIDE 24 mmol/L (21-32); CHLORIDE 98 mmol/L (98-107); CREATININE 1.7 mg/dL (0.6-1.3); GLUCOSE 194 mg/dL (74-106); POTASSIUM 3.2 mmol/L (3.5-5.1); SODIUM SERUM 133 mmol/L (136-145); TOTAL PROTEIN, SERUM 8.7 g/dL (6.4-8.2); UREA NITROGEN, BLOOD 33 mg/dL (7-18)
[2020-05-22 19:19] LABS: ACETAMINOPHEN < 2 ug/ml (10-30); ALCOHOL, BLOOD < 3 mg/dL (0-0); SALICYLATE 0.7 mg/dL (2.8-20.0)
--- NOTE | 2020-05-22 21:20 | NUR ---
SPOKE W/ SCOTT FROM [facility], PT ACCEPTED AT [facility]
--- NOTE | 2020-05-22 22:16 | NUR ---
NUMBER FOR REPORT: [phone] ACCEPTING PHYSICIAN: DR CORREA
[2020-05-22] MEDS ORDERED: POTASSIUM CHLORIDE 20 MEQ TAB.PRT.SR PO ONE (22:17)
[2020-05-22] MEDS: POTASSIUM CHLORIDE 20 MEQ TAB.PRT.SR PO ONE (22:21)
--- NOTE | 2020-05-22 22:32 | NUR ---
REPORT GIVEN TO CHULA HINSON
--- NOTE | 2020-05-22 22:37 | NUR ---
[facility] RES#[id number], ETA TO FOLLOW
--- NOTE | 2020-05-22 22:46 | NUR ---
[facility] ETA 45 MINUTES
[2020-05-22] MEDS ORDERED: CLONIDINE HCL 0.1 MG TABLET ONE (23:21)
[2020-05-22] MEDS ORDERED: LORAZEPAM 1 MG TABLET ONE (23:23)
[2020-05-22 23:25] VITALS: BP 163/100
[2020-05-22] MEDS: LORAZEPAM 1 MG TABLET PO ONE (23:25)
--- NOTE | 2020-05-22 23:48 | NUR ---
REPORT GIVEN TO EMS. PT STABLE FOR TRANSFER
== END 2020-05-22 23:50 ==
LOC: ER 18:20
DX: R45.851 Suicidal ideations (principal); F31.9 Bipolar disorder, unspecified; F20.0 Paranoid schizophrenia; G40.909 Epilepsy, unspecified, not intractable, without status epilepticus; F17.210 Nicotine dependence, cigarettes, uncomplicated; Z59.0 Homelessness; Z04.6 Encounter for general psychiatric examination, requested by authority
CPT/HCPCS: 36415; 80048; 80076; 80305; 80307; 80329; 81001; 85025; 99285; G0480; 81000-TC

== ENCOUNTER 2020-06-15 17:24 | Emergency (ER) | payer MEDICAID ==
[~2020-06-15] VITALS: Ht 172.7 cm; Wt 97.5 kg
--- NOTE | 2020-06-15 19:10 | NUR ---
BIBS, WALKED IN TO ER. TO ER BED 13. AAOX4, NOT IN RESP DISTRESS. AMBULATORY. CAME IN FOR SUICIDAL IDEATION WITH PLAN TO TORCH HIMSELF BY POURING ACID ON HIM. DENIES HI. DENIES BOTH VISUAL AND AUDITORY HALLUCINATION. PT IS SEEKING VOLUNTARY INPATIENT CARE. PT IS GOWNED, BELONGINGS PLACED IN LOCKER LOCATED IN UTILITY ROOM, VISUALLY INSPECTED FOPR CONTRABAND, WANDED AND 1:1 SITTER AT BEDSIDE. WAS AT THE BEDSIDE FOR EVAL. ORDERS RECEIVED NOTED AND CARRIED OUT. URINE COLLECTED FROM PT AND SENT TO LAB
[2020-06-15] MEDS ORDERED: LORAZEPAM 1 MG TABLET PO ONE (20:00)
[2020-06-15] MEDS ORDERED: LORAZEPAM 1 MG TABLET ONE (20:43)
[2020-06-15 20:46] LABS: BASOPHILS # (AUTO) 0.1 /CMM (0.0-0.2); BASOPHILS % (AUTO) 0.9 % (0.0-2.0); EOSINOPHILS % (AUTO) 0.6 % (0.0-6.0); HEMATOCRIT 40 % (39-51); HEMOGLOBIN 13.4 g/dL (13.5-17.5); LYMPHOCYTES # (AUTO) 1.8 /CMM (0.8-4.8); LYMPHOCYTES % (AUTO) 32.1 % (20.0-44.0); MEAN CORPUSCULAR HGB CONC 34 g/dl (31.0-36.0); MEAN CORPUSCULAR VOLUME 91 fL (80-96); MONOCYTES # (AUTO) 0.4 /CMM (0.1-1.30); MONOCYTES % (AUTO) 6.4 % (2.0-12.0); NEUTROPHILS # (AUTO) 3.4 /CMM (1.8-8.9); PLATELET COUNT (AUTO) 261 /CMM (150-450); RED BLOOD CELL COUNT(AUTO) 4.37 MIL/uL (4.5-6.0); WHITE BLOOD COUNT (AUTO) 5.7 K/uL (4.3-11.0)
[2020-06-15 20:50] LABS: APPEARANCE,URINE Clear (CLEAR); BILIRUBIN,URINE Negative (NEGATIVE); BLOOD, URINE Negative Ery/uL (NEGATIVE); COLOR,URINE Yellow (YELLOW); KETONES,URINE 15 (NEGATIVE); LEUKOCYTE ESTERASE ,URINE Negative (NEGATIVE); NITRITE, URINE Negative (NEGATIVE); PROTEIN,URINE Trace mg/dl (NEGATIVE); UGLUCOSE Negative (NEGATIVE)
[2020-06-15 21:05] LABS: BACTERIA,URINE Few /HPF (None Seen); CALCIUM OXALATE CRYSTALS,UR Few /HPF (None Seen); RBC,URINE 0-2 /HPF (0-2); SQUAMOUS EPITHELIAL CELL,UR Few /HPF (None Seen); WBC,URINE 0-2 /HPF (0-3)
[2020-06-15 21:10] LABS: CALCIUM, SERUM 8.9 mg/dL (8.5-10.1); CARBON DIOXIDE 27 mmol/L (21-32); CHLORIDE 109 mmol/L (98-107); CREATININE 1.4 mg/dL (0.6-1.3); GLUCOSE 98 mg/dL (74-106); POTASSIUM 4.4 mmol/L (3.5-5.1); SODIUM SERUM 146 mmol/L (136-145); UREA NITROGEN, BLOOD 20 mg/dL (7-18)
[2020-06-15 21:15] LABS: ALANINE AMINOTRANSFERASE 37 U/L (12-78); ALCOHOL, BLOOD < 3 mg/dL (0-0); ALKALINE PHOSPHATASE 100 U/L (46-116); ASPARTATE AMINOTRANSFERASE 16 U/L (15-37); BILIRUBIN,DIRECT 0.1 mg/dL (0.0-0.2); BILIRUBIN,TOTAL 0.3 mg/dL (0.2-1.0); TOTAL PROTEIN, SERUM 7.3 g/dL (6.4-8.2)
[2020-06-15 21:22] LABS: SALICYLATE 0.3 mg/dL (2.8-20.0)
[2020-06-15 22:40] LABS: ACETAMINOPHEN 0 ug/ml (10-30)
--- NOTE | 2020-06-15 22:48 | NUR ---
CLINICAL FAXED TO [facility] FOR VOLUNTARY PSYCH ADMISSION.
--- NOTE | 2020-06-16 00:32 | NUR ---
PT AAOX4 NO ACUTE DISTRESS NOTED, RESP EVEN AND UNLABORED. JUICE PROVIDED TO PT PER PT REQUEST. PT CALM AND COOPERATIVE AT THIS TIME.
--- NOTE | 2020-06-16 02:30 | NUR ---
PT ACCEPTED TO [facility]EPTING MD SENA PHONE# FOR REPORT PT WILL GO TO UNIT 1.
--- NOTE | 2020-06-16 02:55 | NUR ---
CALLED AND SPOKE WITH OPAL FROM [facility] IN REGARDS TO PT TRANSPORT. TRIP # [id number] ETA 1 TO 3 HRS.
--- NOTE | 2020-06-16 02:56 | NUR ---
REPORT CALLED TO [facility] NURSING MERCHANDISING PROFESSOR FLAVIA QUIROS.
--- NOTE | 2020-06-16 04:23 | NUR ---
[facility] CALLED REGARDING TRANSPORT ETA 0730 ([facility]).
--- NOTE | 2020-06-16 05:06 | NUR ---
PT ASLEEP, NO ACUTE DISTRESS NOTED, RESP EVEN AND UNLABORED. CALL LIGHT WITHIN REACH. WILL CONTINUE TO MONITOR PT CLOSELY. 1:1 SITTER REMAINS AT BEDSIDE FOR PT SAFETY.
--- NOTE | 2020-06-16 07:16 | NUR ---
ASSESSED PT ON BED AWAKE AND ALERT, NOT IN RESPIRATORY DISTRESS, V/S STABLE, KEPT RESTED AND COMFORTABLE. WILL CONTINUE TO MONITOR.
[2020-06-16 07:17] VITALS: BP 128/81
--- NOTE | 2020-06-16 08:19 | NUR ---
REPORT GIVEN TO EMT FOR PT TRANSFER TO [facility].
== END 2020-06-16 08:31 ==
LOC: ER 17:31
DX: R44.0 Auditory hallucinations (principal); R45.851 Suicidal ideations; I10 Essential (primary) hypertension; G40.909 Epilepsy, unspecified, not intractable, without status epilepticus; F32.9 Major depressive disorder, single episode, unspecified; F17.200 Nicotine dependence, unspecified, uncomplicated; Z59.0 Homelessness
CPT/HCPCS: 36415; 80048; 80076; 80305; 80307; 80329; 81001; 85025; 99285; G0480; 81000-TC

== ENCOUNTER 2020-07-18 05:49 | Emergency (ER) | payer OTHER ==
[~2020-07-18] VITALS: Ht 170.2 cm; Wt 83.9 kg
--- NOTE | 2020-07-18 06:10 | NUR ---
PT BIBSELF C/O SUICIDAL IDEATION WITH PLAN TO DROWN HIMSELF. PT ALSO C/O AUDITORY HALLUCINATIONS. DENIES HI AT THIS TIME. PT ADMITS TO METH, MARIJUANNA, AND ALCOHOL USE RETAIL SHIFT SUPERVISOR. PT AAOX4. CALM AND COOPERATIVE. VITAL SIGNS STABLE. RESPIRATIONS EVEN AND UNLABORED. AMBULATORY WITH STEADY GAIT. NO ACUTE DISTRESS NOTED AT THIS TIME. SUICIDE PRECAUTIONS INITIATED. PT PLACED IN GOWN. BELONGINGS COLLECTED AND PLACED IN PATIENT LOCKER. SITTER AT BEDSIDE, WILL CONTINUE TO MONITOR
--- NOTE | 2020-07-18 06:14 | NUR ---
security at bedside for wanding.
[2020-07-18 06:39] LABS: BASOPHILS % (AUTO) 0.6 % (0.0-2.0); EOSINOPHILS % (AUTO) 1.2 % (0.0-6.0); HEMATOCRIT 44 % (39-51); HEMOGLOBIN 14.6 g/dL (13.5-17.5); LYMPHOCYTES # (AUTO) 1.6 /CMM (0.8-4.8); LYMPHOCYTES % (AUTO) 30.1 % (20.0-44.0); MEAN CORPUSCULAR HGB CONC 34 g/dl (31.0-36.0); MEAN CORPUSCULAR VOLUME 89 fL (80-96); MONOCYTES # (AUTO) 0.5 /CMM (0.1-1.30); MONOCYTES % (AUTO) 8.6 % (2.0-12.0); NEUTROPHILS # (AUTO) 3.1 /CMM (1.8-8.9); NEUTROPHILS % (AUTO) 59.5 % (43.0-81.0); PLATELET COUNT (AUTO) 196 /CMM (150-450); RED BLOOD CELL COUNT(AUTO) 4.88 MIL/uL (4.5-6.0); WHITE BLOOD COUNT (AUTO) 5.3 K/uL (4.3-11.0)
[2020-07-18 06:42] LABS: APPEARANCE,URINE CLEAR (CLEAR); BILIRUBIN,URINE NEGATIVE (NEGATIVE); BLOOD, URINE NEGATIVE Ery/uL (NEGATIVE); COLOR,URINE YELLOW (YELLOW); KETONES,URINE NEGATIVE (NEGATIVE); LEUKOCYTE ESTERASE ,URINE NEGATIVE (NEGATIVE); NITRITE, URINE NEGATIVE (NEGATIVE); PROTEIN,URINE 100 mg/dl (NEGATIVE); UGLUCOSE NEGATIVE (NEGATIVE)
[2020-07-18 06:53] LABS: CALCIUM, SERUM 8.9 mg/dL (8.5-10.1); CARBON DIOXIDE 30 mmol/L (21-32); CHLORIDE 101 mmol/L (98-107); CREATININE 1.4 mg/dL (0.6-1.3); GLUCOSE 105 mg/dL (74-106); POTASSIUM 4.2 mmol/L (3.5-5.1); SODIUM SERUM 138 mmol/L (136-145); UREA NITROGEN, BLOOD 15 mg/dL (7-18)
[2020-07-18 06:58] LABS: ALANINE AMINOTRANSFERASE 24 U/L (12-78); ALBUMIN 4.4 g/dL (3.4-5.0); ALCOHOL, BLOOD < 3 mg/dL (0-0); ALKALINE PHOSPHATASE 66 U/L (46-116); ASPARTATE AMINOTRANSFERASE 18 U/L (15-37); BILIRUBIN,DIRECT 0.1 mg/dL (0.0-0.2); BILIRUBIN,TOTAL 0.7 mg/dL (0.2-1.0); TOTAL PROTEIN, SERUM 7.8 g/dL (6.4-8.2)
[2020-07-18 07:08] LABS: RBC,URINE 0-3 /HPF (0-2)
[2020-07-18 07:09] LABS: BACTERIA,URINE None seen /HPF (None Seen); SQUAMOUS EPITHELIAL CELL,UR Rare /HPF (None Seen)
[2020-07-18 07:11] LABS: ACETAMINOPHEN < 10 ug/ml (10-30)
--- NOTE | 2020-07-18 07:56 | NUR ---
COVID SWAB SENT.
--- NOTE | 2020-07-18 08:21 | NUR ---
COVID19 NEGATIVE.
--- NOTE | 2020-07-18 08:39 | NUR ---
CASSIA received a call from SCHOOL BUS DRIVER/TEACHER ASSISTANTCHULA Price that patient would like voluntary psychiatric treatment. CASSIA informed Edmundo at [facility]. Per CASSIA Wyatt to fax clinicals to this morning. CASSIA faxed clinicals pending review.
--- NOTE | 2020-07-18 10:06 | NUR ---
SW received a call from [facility] at Intake. Per Sebastian patient has been accepted under the care of Dr. Arana. Report to be provided to Nursing Packer Fuser Farrah .
--- NOTE | 2020-07-18 11:31 | NUR ---
REPORT GIVEN TO KRAIG QUIROS AT [facility]
--- NOTE | 2020-07-18 13:45 | NUR ---
CALLED [facility] FOR TRANSPORT TO [facility]. ETA 30 MINUTES.
--- NOTE | 2020-07-18 14:12 | NUR ---
PATIENT A/OX4, BREATHING EVEN AND UNLABORED, NO SOB NOTED, PATIENT TRANSFERRED TO [facility] IN STABLE CONDITION.
[2020-07-18 14:14] VITALS: BP 153/96
== END 2020-07-18 14:14 ==
LOC: ER 05:55
DX: R45.851 Suicidal ideations (principal); F32.9 Major depressive disorder, single episode, unspecified; F15.10 Other stimulant abuse, uncomplicated; R79.89 Other specified abnormal findings of blood chemistry; Z20.828 Contact with and (suspected) exposure to other viral communicable diseases; Z59.0 Homelessness; G40.909 Epilepsy, unspecified, not intractable, without status epilepticus; F25.0 Schizoaffective disorder, bipolar type; R03.0 Elevated blood-pressure reading, without diagnosis of hypertension
CPT/HCPCS: 36415; 80048; 80076; 80299; 80307 ×2; 80320; 81001; 85025; 87426; 99285; C9803; 81000-TC; G0480

== ENCOUNTER 2020-08-07 20:35 | Emergency (ER) | payer OTHER ==
[~2020-08-07] VITALS: Ht 172.7 cm; Wt 99.8 kg
[2020-08-07 20:35] VITALS: BP 143/78
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
--- NOTE | 2020-08-07 21:41 | NUR ---
URINE COLLECTED AND SENT TO LAB
[2020-08-07 21:56] LABS: BASOPHILS % (AUTO) 0.4 % (0.0-2.0); EOSINOPHILS % (AUTO) 0.7 % (0.0-6.0); HEMATOCRIT 43 % (39-51); LYMPHOCYTES # (AUTO) 1.9 /CMM (0.8-4.8); LYMPHOCYTES % (AUTO) 36.5 % (20.0-44.0); MEAN CORPUSCULAR HGB CONC 33 g/dl (31.0-36.0); MEAN CORPUSCULAR VOLUME 90 fL (80-96); MONOCYTES # (AUTO) 0.3 /CMM (0.1-1.30); MONOCYTES % (AUTO) 6.6 % (2.0-12.0); NEUTROPHILS # (AUTO) 2.9 /CMM (1.8-8.9); NEUTROPHILS % (AUTO) 55.8 % (43.0-81.0); PLATELET COUNT (AUTO) 262 /CMM (150-450); RED BLOOD CELL COUNT(AUTO) 4.75 MIL/uL (4.5-6.0); WHITE BLOOD COUNT (AUTO) 5.1 K/uL (4.3-11.0)
[2020-08-07 21:58] LABS: BILIRUBIN,URINE Negative (NEGATIVE); BLOOD, URINE Negative Ery/uL (NEGATIVE); COLOR,URINE Yellow (YELLOW); LEUKOCYTE ESTERASE ,URINE Negative (NEGATIVE); NITRITE, URINE Negative (NEGATIVE); PROTEIN,URINE Negative (NEGATIVE); UGLUCOSE Negative (NEGATIVE); UROBILINOGEN,URINE 0.2 EU/dL (0.2)
[2020-08-07 22:12] LABS: ALANINE AMINOTRANSFERASE 36 U/L (12-78); ALBUMIN 4.1 g/dL (3.4-5.0); ALCOHOL, BLOOD < 3 mg/dL (0-0); ALKALINE PHOSPHATASE 93 U/L (46-116); ASPARTATE AMINOTRANSFERASE 18 U/L (15-37); BILIRUBIN,DIRECT 0.1 mg/dL (0.0-0.2); BILIRUBIN,TOTAL 0.3 mg/dL (0.2-1.0); CALCIUM, SERUM 9.4 mg/dL (8.5-10.1); CARBON DIOXIDE 31 mmol/L (21-32); CHLORIDE 105 mmol/L (98-107); CREATININE 1.1 mg/dL (0.6-1.3); GLUCOSE 82 mg/dL (74-106); POTASSIUM 4.1 mmol/L (3.5-5.1); SODIUM SERUM 142 mmol/L (136-145); TOTAL PROTEIN, SERUM 8.2 g/dL (6.4-8.2); UREA NITROGEN, BLOOD 7 mg/dL (7-18)
[2020-08-07 22:14] LABS: ACETAMINOPHEN < 2 ug/ml (10-30)
--- NOTE | 2020-08-07 23:15 | NUR ---
FAXED FACESHEET AND CLINICALS TO [facility] (COVID RESULT PENDING)
--- NOTE | 2020-08-08 00:20 | NUR ---
PT ACCEPTED AT [facility] TSAI PT WILL GO TO UNIT 1 ACCEPTING MD SENA PHONE NUMBER FOR REPORT
--- NOTE | 2020-08-08 00:28 | NUR ---
TRANSPORT CALLED ([facility]) ETA 0217.
--- NOTE | 2020-08-08 00:34 | NUR ---
REPORT GIVEN GONZALO NURSE AT [facility] VN
== END 2020-08-08 03:20 ==
LOC: ER 20:43
DX: R45.851 Suicidal ideations (principal); F20.0 Paranoid schizophrenia; F31.9 Bipolar disorder, unspecified; G40.909 Epilepsy, unspecified, not intractable, without status epilepticus; Z20.828 Contact with and (suspected) exposure to other viral communicable diseases; Z59.0 Homelessness
CPT/HCPCS: 36415; 80048; 80076; 80299; 80307; 80320; 81001; 85025; 87426; 99285; C9803; 81000-TC; G0480

== ENCOUNTER 2020-09-20 11:57 | Emergency (ER) | payer OTHER ==
[~2020-09-20] VITALS: Ht 172.7 cm; Wt 98.4 kg
--- NOTE | 2020-09-20 12:10 | NUR ---
bib self c/o +SI, cut his right index finger with a razor 2 weeks ago,denies HI. vs checked. urine collected sent to lab. belongings checked. placed on suicide precautions. seen by
--- NOTE | 2020-09-20 12:12 | NUR ---
called security for wanding
[2020-09-20] MEDS ORDERED: HYDROCODONE/APAP 5/325MG TABLET PO ONE (13:00)
[2020-09-20] MEDS ORDERED: HYDROCODONE/APAP 5/325MG TABLET ONE (13:09)
[2020-09-20 13:25] LABS: BILIRUBIN,URINE NEGATIVE (NEGATIVE); BLOOD, URINE NEGATIVE Ery/uL (NEGATIVE); COLOR,URINE YELLOW (YELLOW); LEUKOCYTE ESTERASE ,URINE NEGATIVE (NEGATIVE); NITRITE, URINE NEGATIVE (NEGATIVE); PROTEIN,URINE NEGATIVE (NEGATIVE); UGLUCOSE NEGATIVE (NEGATIVE); UROBILINOGEN,URINE 0.2 EU/dL (0.2)
[2020-09-20 13:47] LABS: CALCIUM, SERUM 8.9 mg/dL (8.5-10.1); CARBON DIOXIDE 30 mmol/L (21-32); CHLORIDE 107 mmol/L (98-107); CREATININE 0.9 mg/dL (0.6-1.3); GLUCOSE 106 mg/dL (74-106); POTASSIUM 4.9 mmol/L (3.5-5.1); SODIUM SERUM 143 mmol/L (136-145); UREA NITROGEN, BLOOD 16 mg/dL (7-18)
[2020-09-20 13:55] LABS: ALANINE AMINOTRANSFERASE 48 U/L (12-78); ALBUMIN 3.6 g/dL (3.4-5.0); ALCOHOL, BLOOD < 3 mg/dL (0-0); ALKALINE PHOSPHATASE 85 U/L (46-116); ASPARTATE AMINOTRANSFERASE 28 U/L (15-37); BILIRUBIN,DIRECT 0.1 mg/dL (0.0-0.2); BILIRUBIN,TOTAL 0.2 mg/dL (0.2-1.0); TOTAL PROTEIN, SERUM 8.5 g/dL (6.4-8.2)
[2020-09-20 13:56] LABS: BASOPHILS % (AUTO) 0.3 % (0.0-2.0); EOSINOPHILS % (AUTO) 0.3 % (0.0-6.0); HEMATOCRIT 40 % (39-51); HEMOGLOBIN 13.3 g/dL (13.5-17.5); LYMPHOCYTES # (AUTO) 0.9 /CMM (0.8-4.8); MEAN CORPUSCULAR HGB CONC 33 g/dl (31.0-36.0); MEAN CORPUSCULAR VOLUME 87 fL (80-96); MONOCYTES # (AUTO) 0.4 /CMM (0.1-1.30); MONOCYTES % (AUTO) 10.6 % (2.0-12.0); NEUTROPHILS # (AUTO) 2.4 /CMM (1.8-8.9); NEUTROPHILS % (AUTO) 64.8 % (43.0-81.0); PLATELET COUNT (AUTO) 304 /CMM (150-450); WHITE BLOOD COUNT (AUTO) 3.7 K/uL (4.3-11.0)
[2020-09-20 14:00] LABS: ACETAMINOPHEN < 2 ug/ml (10-30)
--- NOTE | 2020-09-20 18:25 | NUR ---
CALLED NIMESH QUIROS FOR PSYCH EVAL.
--- NOTE | 2020-09-20 19:27 | NUR ---
CALLED GORAN FROM [facility]. TRYING TO FIND PLACEMENT FOR COVID POSITIVE PATIENT. WILL CALL BACK WHEN HE FINDS BED AVAILABILITY AT [place]. GORAN .
--- NOTE | 2020-09-20 19:31 | NUR ---
TOOK OVER PT CARE. PT IN BED RESTING COMFORTABLY. PROVIDED WITH BLANETS. PLACED ON MONITOR AND PULSE OX. AWARE OF PLAN OF CARE. CALL LIGHT AT BEDSIDE.
--- NOTE | 2020-09-20 21:47 | NUR ---
PT REMAINS ASLEEP, VSS.
--- NOTE | 2020-09-20 23:09 | NUR ---
PT RESTING IN BED, PROVIDED WITH MORE BLANKETS.
--- NOTE | 2020-09-20 23:49 | NUR ---
PER [facility] INTA[facility], NO BED AVAILABLE AT THIS TIME
--- NOTE | 2020-09-21 00:03 | NUR ---
PT ASKED FOR FOOD. PT PROVIDED WITH SANDWHICH AND WATER. VSS.
--- NOTE | 2020-09-21 01:43 | NUR ---
PT ASLEP,VSS.
--- NOTE | 2020-09-21 01:53 | NUR ---
pt asleep, no acute distress noted, resp even and unlabored. 1:1 sitter at bedside for pt safety. call light within reach. will continue to monitor pt closely.
--- NOTE | 2020-09-21 02:03 | NUR ---
PT FOUND ON THE FLOOR ASLEEP NEXT TO GURSAN PATRICIO. PT REFUSES TO SLEEP ON THE GUYNEY. PT DENIES FALLING. PT AAOX4 NO ACUTE DISTRESS NOTED, RESP EVEN AND UNLABORED. WILL CONTINUE TO MONITOR PT CLOSELY.
--- NOTE | 2020-09-21 03:36 | NUR ---
PT REMAINS TO REFUSE TO SLEEP ON GURNEY AND PREFERS TO SLEEP ON THE FLOOR ON TOP OF BLANKETS.
--- NOTE | 2020-09-21 06:22 | NUR ---
pt asleep, no acute distress noted, resp even and unlabored. call light within reach. will continue to monitor pt closely.
--- NOTE | 2020-09-21 10:00 | NUR ---
PT RESTING IN BED. OFFERED MEAL TRAY. REFUSING AT THIS TIME. ALL NEEDS ATTENDED. VSS. WILL CONTINUE TO MONITOR.
--- NOTE | 2020-09-21 13:11 | NUR ---
CALLED RONALD AT [facility] INTAKE REGARDING UPDATE ON PATIENT. NO AVAILABLE BED FOR COVID19 PT AT THIS TIME. WILL CALL BACK AT 1400.
--- NOTE | 2020-09-21 13:11 | NUR ---
Andreea ayon in ED - 09/21/20 at 1313 by ELIZABET CALLED RONALD AT [facility] INTAKE REGARDING UPDATE ON PATIENT. NO AVAILABLE BED FOR COVID19 PT AT THIS TIME. WILL CALL BACK AT 1400.
--- NOTE | 2020-09-21 19:37 | NUR ---
RESUMED CARE FOR PT. PT APPEARS COMFORTABLE. 2 NEW GOWNS PROVIDED REQUESTED. AND PROVIDED NEW SHEETS.
[2020-09-21] MEDS ORDERED: DIVALPROEX SODIUM 500 MG TABLET.DR PO ONE ×2 (21:00→21:12)
[2020-09-21] MEDS ORDERED: LEVETIRACETAM (250 MG) 250 MG TABLET PO ONE (21:06)
--- NOTE | 2020-09-21 21:11 | NUR ---
SPOKE TO RONNI FROM [facility]. PT IS ACCEPTED AT [facility] UNIT P4 MD CHATTERJEE NUMBER FOR REPORT IS [phone]. CALLED [facility] FOR TRANSPORT ETA IS [phone].
--- NOTE | 2020-09-21 21:24 | NUR ---
REPORT GIVEN TO CHULA BLANC FOR JA[facility]E, [facility]
--- NOTE | 2020-09-22 00:05 | NUR ---
REPORT GIVEN TO EMT FROM [facility] FOR CONTINUITY OF CARE. PT VSS. PT AWARE TRANSFER TO [facility]. PERSONAL BELONGINGS GIVEN TO TRANSPORT. PT TO BE PLACED ON GURNEY DURING TRANSFER. PT CALM AND RELAXED AT THIS TIME.
[2020-09-22 00:08] VITALS: BP 140/96
== END 2020-09-22 00:11 ==
LOC: ER 11:59
DX: R45.851 Suicidal ideations (principal); U07.1 COVID-19; Z59.0 Homelessness; G40.909 Epilepsy, unspecified, not intractable, without status epilepticus; S61.210D Laceration without foreign body of right index finger without damage to nail, subsequent encounter; W26.8XXD Contact with other sharp object(s), not elsewhere classified, subsequent encounter; F20.0 Paranoid schizophrenia; F31.9 Bipolar disorder, unspecified; Z82.49 Family history of ischemic heart disease and other diseases of the circulatory system
CPT/HCPCS: 36415; 80048; 80076; 80299; 80307; 80320; 81003; 85025; 87426; 99285; C9803; G0480

== ENCOUNTER 2020-10-17 21:39 | Emergency (ER) | payer OTHER ==
[~2020-10-17] VITALS: Ht 172.7 cm; Wt 98.4 kg
[2020-10-17 21:40] VITALS: BP 134/67
--- NOTE | 2020-10-17 22:06 | NUR ---
PT WANTS TO LEAVE AND DOESN'T WANT TO BE SEEN BY ER MD. PT STILL DENIES SI/HI. PT STATES "I FEEL BETTER, I'LL F/U WITH MY DOCTOR."
== END 2020-10-17 22:10 | disposition home or self-care (01) ==
LOC: ER 21:41
DX: Z53.21 Procedure and treatment not carried out due to patient leaving prior to being seen by health care provider (principal); F32.9 Major depressive disorder, single episode, unspecified; G40.909 Epilepsy, unspecified, not intractable, without status epilepticus; F20.9 Schizophrenia, unspecified

== ENCOUNTER 2021-01-02 23:44 | Emergency (ER) | payer OTHER ==
[~2021-01-02] VITALS: Ht 172.7 cm; Wt 98.0 kg
--- NOTE | 2021-01-02 23:44 | NUR ---
Pt to er requesting medical clearance for [facility] psych [facility]. Pt states si w/ plan to od on meds. No immediate signs of distress noted. Pt vital signs stable. Patient is awake and alert to self, day, and place. Will cont to monitor pt.
[2021-01-03 00:43] LABS: BASOPHILS % (AUTO) 0.3 % (0.0-2.0); EOSINOPHILS % (AUTO) 0.6 % (0.0-6.0); HEMATOCRIT 43 % (39-51); HEMOGLOBIN 14.4 g/dL (13.5-17.5); LYMPHOCYTES # (AUTO) 1.8 /CMM (0.8-4.8); LYMPHOCYTES % (AUTO) 27.3 % (20.0-44.0); MEAN CORPUSCULAR HGB CONC 33 g/dl (31.0-36.0); MEAN CORPUSCULAR VOLUME 87 fL (80-96); MONOCYTES # (AUTO) 0.4 /CMM (0.1-1.30); MONOCYTES % (AUTO) 6.2 % (2.0-12.0); NEUTROPHILS # (AUTO) 4.3 /CMM (1.8-8.9); NEUTROPHILS % (AUTO) 65.6 % (43.0-81.0); PLATELET COUNT (AUTO) 274 /CMM (150-450); WHITE BLOOD COUNT (AUTO) 6.5 K/uL (4.3-11.0)
[2021-01-03 00:50] LABS: BILIRUBIN,URINE NEGATIVE (NEGATIVE); COLOR,URINE YELLOW (YELLOW); LEUKOCYTE ESTERASE ,URINE NEGATIVE (NEGATIVE); NITRITE, URINE NEGATIVE (NEGATIVE); PROTEIN,URINE NEGATIVE (NEGATIVE); UGLUCOSE NEGATIVE (NEGATIVE); UROBILINOGEN,URINE 0.2 EU/dL (0.2)
[2021-01-03 00:52] LABS: CALCIUM, SERUM 9.7 mg/dL (8.5-10.1); CARBON DIOXIDE 32 mmol/L (21-32); CHLORIDE 104 mmol/L (98-107); GLUCOSE 93 mg/dL (74-106); POTASSIUM 4.4 mmol/L (3.5-5.1); SODIUM SERUM 140 mmol/L (136-145); UREA NITROGEN, BLOOD 13 mg/dL (7-18)
[2021-01-03 00:58] LABS: ALANINE AMINOTRANSFERASE 31 U/L (12-78); ALBUMIN 4.1 g/dL (3.4-5.0); ALKALINE PHOSPHATASE 93 U/L (46-116); ASPARTATE AMINOTRANSFERASE 18 U/L (15-37); BILIRUBIN,DIRECT 0.1 mg/dL (0.0-0.2); BILIRUBIN,TOTAL 0.3 mg/dL (0.2-1.0); TOTAL PROTEIN, SERUM 7.9 g/dL (6.4-8.2)
[2021-01-03 00:59] LABS: ALCOHOL, BLOOD < 3 mg/dL (0-0)
[2021-01-03 01:00] LABS: ACETAMINOPHEN < 2 ug/ml (10-30)
[2021-01-03] MEDS ORDERED: AMLODIPINE BESYLATE 10 MG TABLET ONE (04:25)
[2021-01-03] MEDS ORDERED: AMLODIPINE BESYLATE 5 MG TABLET PO ONE (04:30)
--- NOTE | 2021-01-03 06:51 | NUR ---
pt resting comfortably. no signs of distress noted. pt vital signs stable. will cont to monitor pt.
--- NOTE | 2021-01-03 07:30 | NUR ---
Call from [facility] intake by Dr Summers. unit 2, # for report [phone].
--- NOTE | 2021-01-03 08:33 | NUR ---
REPORT GIVEN TO CHULA FRIAS OF [facility] UNIT 2 FOR JANAE.
--- NOTE | 2021-01-03 08:46 | NUR ---
[facility] CALL[facility]. ETA [phone]
--- NOTE | 2021-01-03 09:10 | NUR ---
REPORT GIVEN TO CHULA HOUSE.
[2021-01-03 10:53] VITALS: BP 129/78
--- NOTE | 2021-01-03 10:53 | NUR ---
REPORT GIVEN TO EMS FOR PT TRANSFER TO [facility].
== END 2021-01-03 10:54 ==
LOC: ER 23:44
DX: R45.851 Suicidal ideations (principal); Z59.0 Homelessness; G40.909 Epilepsy, unspecified, not intractable, without status epilepticus; F20.0 Paranoid schizophrenia; F31.9 Bipolar disorder, unspecified; I10 Essential (primary) hypertension; Z20.822 Contact with and (suspected) exposure to COVID-19
CPT/HCPCS: 36415; 80048; 80076; 80299; 80307; 80320; 81003; 85025; 87426; 99285; C9803; G0480

== ENCOUNTER 2021-02-27 18:30 | Emergency (ER) | payer OTHER ==
[~2021-02-27] VITALS: Ht 170.2 cm; Wt 77.1 kg
[2021-02-27 18:59] LABS: BASOPHILS % (AUTO) 0.7 % (0.0-2.0); EOSINOPHILS % (AUTO) 0.6 % (0.0-6.0); HEMATOCRIT 44 % (39-51); HEMOGLOBIN 14.8 g/dL (13.5-17.5); LYMPHOCYTES # (AUTO) 1.4 /CMM (0.8-4.8); LYMPHOCYTES % (AUTO) 23.2 % (20.0-44.0); MEAN CORPUSCULAR HGB CONC 34 g/dl (31.0-36.0); MEAN CORPUSCULAR VOLUME 88 fL (80-96); MONOCYTES # (AUTO) 0.3 /CMM (0.1-1.30); MONOCYTES % (AUTO) 5.1 % (2.0-12.0); NEUTROPHILS # (AUTO) 4.3 /CMM (1.8-8.9); NEUTROPHILS % (AUTO) 70.4 % (43.0-81.0); PLATELET COUNT (AUTO) 282 /CMM (150-450); RED BLOOD CELL COUNT(AUTO) 4.98 MIL/uL (4.5-6.0); WHITE BLOOD COUNT (AUTO) 6.2 K/uL (4.3-11.0)
[2021-02-27] MEDS ORDERED: TRAZODONE 50 MG TABLET PO ONE (19:00)
[2021-02-27] MEDS ORDERED: QUETIAPINE FUMARATE 100 MG TABLET PO SCH (19:00)
[2021-02-27] MEDS ORDERED: TRAZODONE 50 MG TABLET ONE (19:02)
[2021-02-27 19:11] LABS: ALANINE AMINOTRANSFERASE 35 U/L (12-78); ALBUMIN 4.3 g/dL (3.4-5.0); ALCOHOL, BLOOD < 3 mg/dL (0-0); ALKALINE PHOSPHATASE 110 U/L (46-116); BILIRUBIN,DIRECT 0.1 mg/dL (0.0-0.2); BILIRUBIN,TOTAL 0.3 mg/dL (0.2-1.0); CALCIUM, SERUM 9.1 mg/dL (8.5-10.1); CARBON DIOXIDE 31 mmol/L (21-32); CHLORIDE 104 mmol/L (98-107); GLUCOSE 155 mg/dL (74-106); SODIUM SERUM 140 mmol/L (136-145); TOTAL PROTEIN, SERUM 7.8 g/dL (6.4-8.2); UREA NITROGEN, BLOOD 14 mg/dL (7-18)
[2021-02-27 19:27] LABS: ACETAMINOPHEN < 10 ug/ml (10-30)
[2021-02-27 19:36] LABS: BILIRUBIN,URINE Negative (NEGATIVE); COLOR,URINE YELLOW (YELLOW); LEUKOCYTE ESTERASE ,URINE Negative (NEGATIVE); NITRITE, URINE Negative (NEGATIVE); PROTEIN,URINE Negative (NEGATIVE); UGLUCOSE 250 MG/DL mg/dL (NEGATIVE)
[2021-02-27 19:41] LABS: BACTERIA,URINE Rare /HPF (None Seen); RBC,URINE 0-2 /HPF (0-2); SQUAMOUS EPITHELIAL CELL,UR 0-2 /HPF (None Seen); WBC,URINE 0-2 /HPF (0-3)
[2021-02-27 21:35] LABS: ASPARTATE AMINOTRANSFERASE 30 U/L (15-37)
[2021-02-28 02:54] VITALS: BP 133/67
== END 2021-02-28 03:45 ==
LOC: ER 18:41
DX: R45.851 Suicidal ideations (principal); F20.0 Paranoid schizophrenia; F31.9 Bipolar disorder, unspecified; Z59.0 Homelessness; G40.909 Epilepsy, unspecified, not intractable, without status epilepticus; F17.200 Nicotine dependence, unspecified, uncomplicated; R03.0 Elevated blood-pressure reading, without diagnosis of hypertension; Z20.822 Contact with and (suspected) exposure to COVID-19
CPT/HCPCS: 36415; 80048; 80076; 80143; 80307; 80320; 81001; 85025; 87426; 99285; C9803; G0480

== ENCOUNTER 2021-04-11 12:18 | Emergency (ER) | payer OTHER ==
[~2021-04-11] VITALS: Ht 172.7 cm; Wt 96.2 kg
--- NOTE | 2021-04-11 12:18 | NUR ---
PT BIB SELF C/O SI "I WANT TO STAB MY SELF" REQUESTING VOLUNTARY ADMISSION TO [facility]. PT IS AAOX4, NOT IN RESPIRATORY DISTRESS, V/S STABLE, KEPT RESTED AND COMFORTABLE. WILL CONTINUE TO MONITOR. SITTER AT BEDSIDE.
--- NOTE | 2021-04-11 12:35 | NUR ---
URINE SPECIMEN COLLECTED AND SENT TO LAB.
--- NOTE | 2021-04-11 12:37 | NUR ---
ER PHLEB AT BEDSIDE FOR BLOOD DRAW.
[2021-04-11 12:53] LABS: BASOPHILS % (AUTO) 0.5 % (0.0-2.0); EOSINOPHILS % (AUTO) 0.6 % (0.0-6.0); HEMATOCRIT 40 % (39-51); HEMOGLOBIN 13.6 g/dL (13.5-17.5); LYMPHOCYTES # (AUTO) 0.9 K/uL (0.8-4.8); LYMPHOCYTES % (AUTO) 30.3 % (20.0-44.0); MEAN CORPUSCULAR HGB CONC 34 g/dl (31.0-36.0); MEAN CORPUSCULAR VOLUME 86 fL (80-96); MONOCYTES # (AUTO) 0.2 K/uL (0.1-1.30); MONOCYTES % (AUTO) 6.5 % (2.0-12.0); NEUTROPHILS # (AUTO) 1.9 K/uL (1.8-8.9); NEUTROPHILS % (AUTO) 62.1 % (43.0-81.0); PLATELET COUNT (AUTO) 222 K/uL (150-450); RED BLOOD CELL COUNT(AUTO) 4.66 MIL/uL (4.5-6.0)
[2021-04-11 12:58] LABS: BILIRUBIN,URINE SMALL (NEGATIVE); COLOR,URINE YELLOW (YELLOW); LEUKOCYTE ESTERASE ,URINE Negative (NEGATIVE); NITRITE, URINE Negative (NEGATIVE); PH,URINE 6.5 (5.0-8.0); PROTEIN,URINE 30 mg/dl (NEGATIVE); UGLUCOSE Negative (NEGATIVE)
[2021-04-11 12:59] LABS: CALCIUM, SERUM 8.9 mg/dL (8.5-10.1); CARBON DIOXIDE 32 mmol/L (21-32); CHLORIDE 107 mmol/L (98-107); CREATININE 1.1 mg/dL (0.6-1.3); GLUCOSE 115 mg/dL (74-106); POTASSIUM 3.8 mmol/L (3.5-5.1); SODIUM SERUM 144 mmol/L (136-145); UREA NITROGEN, BLOOD 15 mg/dL (7-18)
[2021-04-11 13:05] LABS: ALANINE AMINOTRANSFERASE 31 U/L (12-78); ALKALINE PHOSPHATASE 70 U/L (46-116); ASPARTATE AMINOTRANSFERASE 21 U/L (15-37); BILIRUBIN,DIRECT 0.1 mg/dL (0.0-0.2); BILIRUBIN,TOTAL 0.5 mg/dL (0.2-1.0); TOTAL PROTEIN, SERUM 7.4 g/dL (6.4-8.2)
[2021-04-11 13:06] LABS: ACETAMINOPHEN 0 ug/ml (10-30); ALCOHOL, BLOOD < 3 mg/dL (0-0)
[2021-04-11 13:12] LABS: BACTERIA,URINE Few /HPF (None Seen); RBC,URINE NONE SEEN /HPF (0-2); SQUAMOUS EPITHELIAL CELL,UR Rare /HPF (None Seen); WBC,URINE 0-2 /HPF (0-3)
--- NOTE | 2021-04-11 18:22 | NUR ---
PATIENT DENIES SI/HI AT THIS TIME. DR. LIM RE-EVALUATED. NO DISTRESS NOTED. NEEDS ATTENDED. HOMELESS WAIVER SIGNED. VERBALLY DISCHARGED, DOESNT WANT TO WAIT FOR DISCHARGE PAPERWORKS. HOMELESS RESOURCES PROVIDED, FOOD TRAY PROVIDED.
--- NOTE | 2021-04-11 18:25 | NUR ---
[facility] CALLED PATIENT IS DENIED FOR ADMISSION. PATIENT AWARE.
[2021-04-11 18:26] VITALS: BP 138/80
== END 2021-04-11 18:26 | disposition home or self-care (01) ==
LOC: ER 12:31
DX: R45.851 Suicidal ideations (principal); F31.9 Bipolar disorder, unspecified; F20.0 Paranoid schizophrenia; G40.909 Epilepsy, unspecified, not intractable, without status epilepticus; Z59.0 Homelessness; Z20.822 Contact with and (suspected) exposure to COVID-19
CPT/HCPCS: 36415; 80048; 80076; 80143; 80307; 80320; 81001; 85025; 87426; 99285; C9803; G0480

== ENCOUNTER 2021-07-24 20:31 | Emergency (ER) | payer OTHER ==
[~2021-07-24] VITALS: Ht 170.2 cm; Wt 68.0 kg
[2021-07-24 20:59] LABS: BASOPHILS % (AUTO) 0.5 % (0.0-2.0); EOSINOPHILS % (AUTO) 0.9 % (0.0-6.0); HEMATOCRIT 40 % (39-51); LYMPHOCYTES % (AUTO) 25.8 % (20.0-44.0); MEAN CORPUSCULAR HGB CONC 32 g/dl (31.0-36.0); MEAN CORPUSCULAR VOLUME 91 fL (80-96); MONOCYTES # (AUTO) 0.2 K/uL (0.1-1.30); MONOCYTES % (AUTO) 5.8 % (2.0-12.0); NEUTROPHILS # (AUTO) 2.6 K/uL (1.8-8.9); PLATELET COUNT (AUTO) 344 K/uL (150-450); RED BLOOD CELL COUNT(AUTO) 4.42 MIL/uL (4.5-6.0); WHITE BLOOD COUNT (AUTO) 3.9 K/uL (4.3-11.0)
--- NOTE | 2021-07-24 21:05 | NUR ---
URINE SENT TO LAB
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
[2021-07-24 21:11] LABS: CALCIUM, SERUM 8.8 mg/dL (8.5-10.1); CARBON DIOXIDE 33 mmol/L (21-32); CHLORIDE 108 mmol/L (98-107); CREATININE 1.1 mg/dL (0.6-1.3); GLUCOSE 142 mg/dL (74-106); SODIUM SERUM 144 mmol/L (136-145); UREA NITROGEN, BLOOD 13 mg/dL (7-18)
[2021-07-24 21:17] LABS: ALANINE AMINOTRANSFERASE 43 U/L (12-78); ALBUMIN 3.4 g/dL (3.4-5.0); ALKALINE PHOSPHATASE 87 U/L (46-116); ASPARTATE AMINOTRANSFERASE 17 U/L (15-37); BILIRUBIN,DIRECT 0.1 mg/dL (0.0-0.2); BILIRUBIN,TOTAL 0.2 mg/dL (0.2-1.0); TOTAL PROTEIN, SERUM 7.3 g/dL (6.4-8.2)
[2021-07-24 21:22] LABS: ACETAMINOPHEN < 10 ug/ml (10-30); ALCOHOL, BLOOD < 3 mg/dL (0-0)
[2021-07-24] MEDS ORDERED: VALPROIC ACID 250 MG/5 ML UDC PO ONE (21:30)
[2021-07-24] MEDS ORDERED: VALPROIC ACID 250 MG/5 ML UDC ONE (21:36)
[2021-07-24 21:58] LABS: BILIRUBIN,URINE Negative (NEGATIVE); COLOR,URINE YELLOW (YELLOW); LEUKOCYTE ESTERASE ,URINE Negative (NEGATIVE); NITRITE, URINE Negative (NEGATIVE); PROTEIN,URINE Negative (NEGATIVE); UGLUCOSE 100 MG/DL mg/dL (NEGATIVE)
[2021-07-24 21:59] LABS: BACTERIA,URINE Rare /HPF (None Seen); RBC,URINE NONE SEEN /HPF (0-2); SQUAMOUS EPITHELIAL CELL,UR Few /HPF (None Seen); WBC,URINE NONE SEEN /HPF (0-3)
--- NOTE | 2021-07-24 23:52 | NUR ---
CLINICALS FAXED TO [facility]
--- NOTE | 2021-07-25 00:11 | NUR ---
[facility] AND WAS INFORMED PATIENT WAS ON A DO NOT READMIT LIST FOR ALL [facility] LOCATIONS
--- NOTE | 2021-07-25 02:30 | NUR ---
PT IS CLEARED FOR DISCHARGED. PT IS AWARE THAT HE IS NOT ACCEPTED AND WANTED TO LEAVE. PT DENIED SUICIDAL IDEATION. IS AMBULATORY ON STEADY GAIT. ALL BELONGINGS WERE RETURNED.
[2021-07-25 03:24] VITALS: BP 122/72
== END 2021-07-25 03:24 | disposition home or self-care (01) ==
LOC: ER 20:38
DX: R45.851 Suicidal ideations (principal); F20.0 Paranoid schizophrenia; F31.9 Bipolar disorder, unspecified; G40.909 Epilepsy, unspecified, not intractable, without status epilepticus; Z59.00 Homelessness unspecified; F17.200 Nicotine dependence, unspecified, uncomplicated; Z20.822 Contact with and (suspected) exposure to COVID-19
CPT/HCPCS: 36415; 80048; 80076; 80143; 80307; 80320; 81001; 85025; 87426; 99285; C9803; G0480